=== PATIENT | male | born 1940 | race African-American/Black ===

== ENCOUNTER 2019-09-13 19:41 | Inpatient (IN) | payer OTHER ==
[~2019-09-13] VITALS: Ht 177.8 cm; Wt 61.7 kg
[2019-09-13] MEDS ORDERED: METHYLPREDNISOLONE SOD SUCC 125 MG/2 ML VIAL IV STA (20:09)
[2019-09-13] MEDS ORDERED: LEVOFLOXACIN 750MG PREMIX 150 ML IV ONE (20:15)
[2019-09-13] MEDS ORDERED: IPRATROPIUM/ALBUTEROL 0.5-3(2.5)MG/3ML NEB HHN ONE (20:15)
[2019-09-13 20:53] LABS: BASOPHILS % 0.5 % (0.0-2.0); EOSINOPHILS % 0.2 % (0.0-5.0); HEMATOCRIT. 28.7 % (42.0-52.0); HEMOGLOBIN. 9.2 g/dL (14.0-18.0); LYMPHOCYTES % 14.3 % (20.0-50.0); MEAN CORPUSCULAR HEMOGLOBIN 29.3 pg (28.0-32.0); MEAN CORPUSCULAR VOLUME 90.7 fL (80.0-94.0); MEAN PLATELET VOLUME 8.2 fl (7.4-10.4); MONOCYTES % 9.4 % (2.0-8.0); NEUTROPHILS % 75.6 % (40.0-76.0); PLATELET 154 x1000/uL (130-400); RED BLOOD CELL COUNT 3.16 mill/uL (4.7-6.1); RED CELL DISTRIBUTION WIDTH 15.4 % (11.6-14.6)
[2019-09-13 20:54] LABS: CHLORIDE 108 mEq/L (98-107)
[2019-09-13 20:56] LABS: INR 1.5; PARTIAL THROMBOPLASTIN TIME 32.7 sec (23.4-31.0)
[2019-09-13] MEDS ORDERED: DILTIAZEM HCL 30MG TABLET PO ONE (21:00)
[2019-09-13 21:01] LABS: BG BASE EXCESS 4.3 mmol/L (-2.0-2.0); BG CARBOXYHEMOGLOBIN 0.3 % (0.5-1.5); BG DEOXYHEMOGLOBIN 0.8 % (0.0-5.0); BG FRACTION INSPIRED OXYGEN 100; BG HCO3 ACT 31.8 mmol/L (22.0-26.0); BG METHEMOGLOBIN 0.4 % (0.0-1.5); BG OXYGEN SATURATION 99.2 % (92.0-98.5); BG OXYHEMOGLOBIN 98.5 % (94.0-97.0); BG PH 7.314 (7.350-7.450); BG PO2 373.8 mmHg (75.0-100.0); BG SAMPLE SITE RIGHT RADIAL; BG TOTAL HEMOGLOBIN 10.7 g/dL (12.0-18.0); BG VENT MODE MASK - NRB
[2019-09-13 21:03] LABS: CREATINE KINASE 77 IU/L (39-308)
[2019-09-13] MEDS ORDERED: DILTIAZEM HCL 5MG/ML 5ML VIAL IV ONE (21:45)
[2019-09-13] MEDS ORDERED: ASPIRIN 81MG TABLET PO ONE (22:00)
[2019-09-13] MEDS ORDERED: GUAIFENESIN 200MG/10ML SUGAR FREE UDC PO PRN (22:15)
[2019-09-13] MEDS ORDERED: MAGNESIUM/ALUMINUM HYDROXIDE/SIMETHICONE 30ML UDC PO PRN (22:15)
[2019-09-13] MEDS ORDERED: IPRATROPIUM/ALBUTEROL 0.5-3(2.5)MG/3ML NEB NEB PRN (22:15)
[2019-09-13] MEDS ORDERED: LORAZEPAM 2MG/ML CPJ IV PRN (22:15)
[2019-09-13] MEDS ORDERED: ACETAMINOPHEN 325MG TABLET PO PRN (22:15)
[2019-09-13] MEDS ORDERED: DIPHENHYDRAMINE 50MG/ML VIAL IV PRN (22:15)
[2019-09-13] MEDS ORDERED: DOCUSATE SODIUM 100MG CAPSULE PO PRN (22:15)
[2019-09-13] MEDS ORDERED: CLONIDINE 0.1MG TABLET PO PRN (22:15)
[2019-09-13] MEDS ORDERED: ONDANSETRON HCL 4MG/2ML INJ IV PRN (22:15)
[2019-09-13] MEDS ORDERED: NA PHOS,M-B/NA PHOS,DI-BA ENEMA 118ML PR PRN (22:15)
[2019-09-13] MEDS ORDERED: HYDROCODONE/ACETAMINOPHEN 5/325MG TABLET PO PRN (22:15)
[2019-09-14] VITALS (12 sets, daily range): BP systolic 126–168; BP diastolic 70–105
[2019-09-14] MEDS: METHYLPREDNISOLONE SOD SUCC 125 MG/2 ML VIAL IV SCH ×4 (05:29→23:32)
[2019-09-14] MEDS: ASPIRIN 81MG EC TABLET PO SCH (08:52)
[2019-09-14] MEDS: FUROSEMIDE 40MG/4ML VIAL IV SCH (08:52)
[2019-09-14] MEDS: ENOXAPARIN 30MG/0.3ML SYR SUBCUT SCH (08:53)
[2019-09-14 09:56] LABS: BASOPHILS % 0.2 % (0.0-2.0); HEMATOCRIT. 26.4 % (42.0-52.0); HEMOGLOBIN. 8.7 g/dL (14.0-18.0); LYMPHOCYTES % 10.1 % (20.0-50.0); MEAN CORPUSCULAR HEMOGLOBIN 29.5 pg (28.0-32.0); MEAN CORPUSCULAR VOLUME 89.5 fL (80.0-94.0); MEAN PLATELET VOLUME 8.1 fl (7.4-10.4); MONOCYTES % 1.3 % (2.0-8.0); NEUTROPHILS % 88.4 % (40.0-76.0); PLATELET 142 x1000/uL (130-400); RED BLOOD CELL COUNT 2.95 mill/uL (4.7-6.1); RED CELL DISTRIBUTION WIDTH 14.9 % (11.6-14.6)
[2019-09-14] MEDS: MORPHINE SULFATE 2 MG/ML CPJ (NOT FOR IM USE) IV PRN ×2 (10:01→20:39)
[2019-09-14 10:39] LABS: CHLORIDE 107 mEq/L (98-107)
[2019-09-14 10:45] LABS: LDL CHOLESTEROL 64 mg/dL (5-100)
[2019-09-14 10:46] LABS: HDL CHOLESTEROL 47 mg/dL (40-59)
[2019-09-14 10:47] LABS: T4 FREE 1.05 ng/dL (0.76-1.46)
[2019-09-14 18:18] LABS: CREATINE KINASE 57 IU/L (39-308)
[2019-09-14] MEDS ORDERED: LEVOFLOXACIN 250MG PREMIX 50 ML IV SCH ×2 (20:00)
[2019-09-14] MEDS: IPRATROPIUM/ALBUTEROL 0.5-3(2.5)MG/3ML NEB HHN SCH (20:33)
[2019-09-15] VITALS (11 sets, daily range): BP systolic 119–159; BP diastolic 83–99
[2019-09-15] MEDS: IPRATROPIUM/ALBUTEROL 0.5-3(2.5)MG/3ML NEB HHN SCH ×5 (00:03→16:42)
[2019-09-15] MEDS: METHYLPREDNISOLONE SOD SUCC 125 MG/2 ML VIAL IV SCH ×3 (05:41→17:50)
[2019-09-15] MEDS ORDERED: VANCOMYCIN 1 G PREMIX 200 ML IV NR (06:00)
[2019-09-15] MEDS: FUROSEMIDE 40MG/4ML VIAL IV SCH (08:46)
[2019-09-15] MEDS: ASPIRIN 81MG EC TABLET PO SCH ×2 (08:46→08:55)
[2019-09-15] MEDS: ENOXAPARIN 30MG/0.3ML SYR SUBCUT SCH (08:47)
[2019-09-15 12:08] LABS: HEMATOCRIT. 26.4 % (42.0-52.0); HEMOGLOBIN. 8.6 g/dL (14.0-18.0); MEAN CORPUSCULAR HEMOGLOBIN 29.4 pg (28.0-32.0); MEAN CORPUSCULAR VOLUME 90.2 fL (80.0-94.0); MEAN PLATELET VOLUME 8.1 fl (7.4-10.4); PLATELET 150 x1000/uL (130-400); RED BLOOD CELL COUNT 2.92 mill/uL (4.7-6.1); RED CELL DISTRIBUTION WIDTH 15.3 % (11.6-14.6)
[2019-09-15 12:29] LABS: PLATELET ESTIMATE NORMAL
[2019-09-15] MEDS ORDERED: VANCOMYCIN 500 MG PREMIX 100 ML IV SCH (14:00)
[2019-09-16] MEDS ORDERED: LEVOFLOXACIN 250MG TABLET PO SCH (11:00)
[2019-09-16] MEDS ORDERED: LEVOFLOXACIN 250MG PREMIX 50 ML IV SCH (21:00)
== END 2019-09-15 22:03 | disposition short-term general hospital (02) | DRG 177 ==
LOC: ER 19:41 → 5EST 21:53 → EDBEDREQTM 22:00 → EDBEDREQ 22:00 → ENRESERV 22:55
PROVIDERS: ADMIT Internal Medicine; ATTEND Internal Medicine
PROC: 5A09357 Assistance with Respiratory Ventilation, Less than 24 Consecutive Hours, Continuous Positive Airway Pressure (ICD-10-PCS; principal; 2019-09-13)
DX: J69.0 Pneumonitis due to inhalation of food and vomit (principal); N17.0 Acute kidney failure with tubular necrosis; J96.20 Acute and chronic respiratory failure, unspecified whether with hypoxia or hypercapnia; I50.43 Acute on chronic combined systolic (congestive) and diastolic (congestive) heart failure; I13.0 Hypertensive heart and chronic kidney disease with heart failure and stage 1 through stage 4 chronic kidney disease, or unspecified chronic kidney disease; Z68.1 Body mass index [BMI] 19.9 or less, adult; N18.9 Chronic kidney disease, unspecified; D64.9 Anemia, unspecified; J44.9 Chronic obstructive pulmonary disease, unspecified; I48.91 Unspecified atrial fibrillation; I25.10 Atherosclerotic heart disease of native coronary artery without angina pectoris; Z87.891 Personal history of nicotine dependence; Z99.81 Dependence on supplemental oxygen
CPT/HCPCS: 36415; 36600; 71045; 76770; 80048; 80053; 80061; 82375; 82550; 82553; 82805; 83605; 83880; 84439; 84443; 84484; 85025; 93005; 94640; 94660; 96365; 96366; 96375; 99291; J1650; J1940; J1956; J2060; J2270; J2930; J3370; J3490; J7620